=== PATIENT | female | born 1995 | race Caucasian/White ===

== ENCOUNTER 2016-03-15 19:54 | Emergency (ER) | payer MEDICAID ==
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
== END 2016-03-15 22:30 | disposition home or self-care (01) ==
LOC: ER 19:54
DX: S61.432A Puncture wound without foreign body of left hand, initial encounter (principal); X58.XXXA Exposure to other specified factors, initial encounter; Y93.39 Activity, other involving climbing, rappelling and jumping off; Y92.89 Other specified places as the place of occurrence of the external cause; Y99.8 Other external cause status
CPT/HCPCS: 99284; 96372; 90715; J0696; Z7502

== ENCOUNTER 2016-04-30 22:09 | Emergency (ER) | payer MEDICAID ==
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
== END 2016-04-30 22:40 | disposition home or self-care (01) ==
LOC: ER 22:09
DX: R51 Headache (principal)
CPT/HCPCS: Z7502

== ENCOUNTER 2016-12-05 20:00 | Emergency (ER) | payer MEDICAID ==
--- NOTE | 2016-12-05 21:33 | ED Physician Chart ---
ED Chief Complaint/HPI - Patient Information Date Seen:: 12/05/16 Time Seen:: 21:15 Chief Complaint:: lower lip lesion History of Present Illness:: Patient's had lower lip lesions last two months Allergies:: Allergies Allergy/AdvReac Type Severity Reaction Status Date / Time No Known Allergies Allergy Verified 04/30/16 22:24 Historian:: Patient Review:: Nurse's Note Reviewed ED Review of Systems - Review of Systems General/Constitutional: No fever, No chills Skin: No skin lesions Head: No headache Eyes: No loss of vision ENT: Other (see history and physical) Neck: No neck pain Cardio Vascular: No chest pain Pulmonary: No SOB GI: No nausea, No vomiting G/U: No dysuria, No hematuria Musculoskeletal: No bone or joint pain Endocrine: No polyuria Psychiatric: No prior psych history, No depression Hematopoietic: No bruising Allergic/Immuno: No urticaria Neurological: No syncope ED Past Medical History - Past Medical History Past Medical History: No significant medical hx Family History: None Social History: Alcohol Employment:: Smokes marijuana and occasionally uses alcohol Surgical History: None Psychiatricy History: None Medication: None Family Medical History - Family Member Mother History Unknown: Yes ED Physical Exam - Physical Examination General/Constitutional: Well-developed, well-nourished, Alert Head: Atraumatic Eyes: Lids, conjuctiva normal, PERRL Skin: Nl inspection, No rash ENMT: External ears, nose nl, TM canals nl, Nasal exam nl Other ENMT comments:: 1-2 very small less than 1 mm nodules on the lower lip Neck: No nuchal rigidity Respiratory: Nl effort/Exclusion Cardio Vascular: RRR GI: No tenderness/rebounding/guarding : No CVA tenderness Extremities: No tenderness or effusion Neuro/Psych: No focal deficits Misc: No paraspinal tenderness ED Septic Shock - . 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
== END 2016-12-05 22:00 | disposition home or self-care (01) ==
LOC: ER 20:00
DX: K13.0 Diseases of lips (principal)
CPT/HCPCS: Z7502

== ENCOUNTER 2018-08-05 10:10 | Emergency (ER) | payer MEDICAID ==
[2018-08-05] MEDS ORDERED: Sodium Chloride 0.9% 1,000 ML IV ONE (10:24)
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
[2018-08-05 10:44] LABS: URINE SOURCE CLEAN C
[2018-08-05 10:48] LABS: % BASOPHILS 0.4 % (0.0-2.0); % EOSINOPHILS 0.4 % (0.0-5.0); % LYMPHOCYTES 12.9 % (20.0-50.0); % MONOCYTES 8.9 % (2.0-10.0); % NEUTROPHILS 77.4 % (40.0-80.0); HEMATOCRIT 42.6 % (41.0-60); HEMOGLOBIN 13.9 gm/dL (12-16); LYMPHOCYTE ABSOLUTE 0.9 Th/cmm (1.5-3.0); MEAN CELL VOLUME 95.1 fl (81-100); MEAN CORPUSCULAR HEMOGLOBIN 31.1 pg (27.0-31.0); MEAN CORPUSCULAR HGB CONC 32.7 pg (28.0-36.0); MONOCYTE ABSOLUTE 0.6 Th/cmm (0.3-1.0); NEUTROPHILE ABSOLUTE 5.4 Th/cmm (1.8-8.0); PLATELET COUNT 334 Th/cmm (150-400); RED BLOOD COUNT 4.48 Mil/cmm (3.80-5.10); RED CELL DISTRIBUTION WIDTH 11.9 % (11.5-20.0); WHITE BLOOD COUNT 6.9 Th/cmm (4.8-10.8)
[2018-08-05 10:55] LABS: URINE BILIRUBIN NEGATIVE (NEGATIVE); URINE BLOOD NEGATIVE (NEGATIVE); URINE GLUCOSE (UA) NEGATIVE (NEGATIVE); URINE KETONE NEGATIVE (NEGATIVE); URINE LEUKOCYTE ESTERASE NEGATIVE (NEGATIVE); URINE NITRATE NEGATIVE (NEGATIVE); URINE PROTEIN 30 mg/dL (NEGATIVE); URINE UROBILINOGEN 0.2 E.U./dL (0.2 - 1.0)
[2018-08-05 11:00] LABS: URINE CLARITY SLIGHTLY HAZY (CLEAR); URINE COLOR YELLOW
[2018-08-05 11:02] LABS: AMYLASE SERUM 40 U/L (29-103); ANION GAP 15.9 (7.0-16.0); BUN - UREA NITROGEN 9 mg/dL (7-25); CALCIUM SERUM 9.8 mg/dL (8.6-10.3); CARBON DIOXIDE 22.1 mEq/L (21.0-31.0); CHLORIDE 105 mEq/L (98-107); CREATININE - SERUM 0.6 mg/dL (0.6-1.2); GFR AFRICAN-AMERICAN > 60.0 ml/min (>90); GFR NON AFRICAN-AMERICAN > 60.0 ml/min; GLUCOSE 96 mg/dL (70-105); LIPASE 23 U/L (11-82); SODIUM SERUM 139 mEq/L (136-145)
[2018-08-05 11:09] LABS: URINE BACTERIA FEW /hpf (NONE SEEN); URINE EPITHELIAL CELLS MANY /lpf (FEW); URINE RBC 0-2 /hpf (0-5); URINE WBC 0-2 /hpf (0-5)
[2018-08-05 11:16] LABS: AMPHETAMINE URINE NEGATIVE (NEGATIVE); BARBITURATES URINE NEGATIVE (NEGATIVE); BENZODIAZEPINES QUAL URINE NEGATIVE (NEGATIVE); CANNABINOID THC POSITIVE (NEGATIVE); COCAINE METABOLITE QUAL URINE NEGATIVE (NEGATIVE); METHADONE URINE NEGATIVE (NEGATIVE); METHAMPHETAMINES QUAL URINE NEGATIVE (NEGATIVE); OPIATES (MORPHINE) QUAL. URINE NEGATIVE (NEGATIVE); PHENCYCLIDINE (PCP) URINE NEGATIVE (NEGATIVE); TRICYCLICS (TCA) QUAL. URINE NEGATIVE (NEGATIVE)
[2018-08-05 11:31] LABS: URINE MICROSCOPIC INDICATED? YES
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
== END 2018-08-05 12:15 | disposition home or self-care (01) ==
LOC: ER 10:10
DX: S00.83XA Contusion of other part of head, initial encounter (principal); K29.70 Gastritis, unspecified, without bleeding; K52.9 Noninfective gastroenteritis and colitis, unspecified; E86.0 Dehydration; B34.9 Viral infection, unspecified; F19.10 Other psychoactive substance abuse, uncomplicated; R00.0 Tachycardia, unspecified; J44.9 Chronic obstructive pulmonary disease, unspecified; Y04.8XXA Assault by other bodily force, initial encounter; Y93.89 Activity, other specified; Y92.89 Other specified places as the place of occurrence of the external cause; Y99.8 Other external cause status
CPT/HCPCS: 99284; 96374; 70450; 70486; 72125; 84484; 36415; 80307; 85025; 81001; 80320; 82150; 84703; 81025; 83690; 80048; J2405; J7030